=== PATIENT | male | born 1970 | race Caucasian/White ===

== ENCOUNTER 2016-10-01 23:20 | Emergency (ER) | payer SELFPAY ==
[2016-10-02] MEDS ORDERED: IBUPROFEN 600 MG TABLET PO ONE (00:40)
[2016-10-02] MEDS ORDERED: LIDOCAINE 5% (700 MG) TRANSDERMAL ADH..PATCH TP ONE (00:41)
[2016-10-02] MEDS ORDERED: ACETAMINOPHEN 325 MG TABLET PO ONE (00:41)
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
--- NOTE | 2016-10-02 01:00 | RADIOLOGY REPORT (SQ) ---
EXAM DESCRIPTION: SHOULDER RIGHT 2 OR MORE VIEWS COMPLETED DATE/TIME: 10/02/2016 12:13 am REASON FOR STUDY: right shoulder pain . Fall off of knee board. COMPARISON: None. NUMBER OF VIEWS: Three views. TECHNIQUE: Internal rotation, external rotation, and Y view images acquired of the right shoulder. LIMITATIONS: None. FINDINGS: MINERALIZATION: Normal. BONES: No acute fracture or dislocation. JOINTS: No dislocation. VISUALIZED LUNGS AND RIBS: No pneumothorax. No displaced rib fracture. SOFT TISSUES: No radiopaque foreign body. IMPRESSION: No radiographic evidence of acute injury. TECHNICAL DOCUMENTATION: JOB ID: [id number] 2010 [employer]- All Rights Reserved
[2016-10-02 01:12] VITALS: BP 121/81
== END 2016-10-02 01:11 | disposition home or self-care (01) ==
LOC: ER 23:20
DX: S49.91XA Unspecified injury of right shoulder and upper arm, initial encounter (principal); W19.XXXA Unspecified fall, initial encounter; Y93.19 Activity, other involving water and watercraft; F17.200 Nicotine dependence, unspecified, uncomplicated; I25.2 Old myocardial infarction
CPT/HCPCS: 99283

== ENCOUNTER 2016-12-18 12:09 | Emergency (ER) | payer SELFPAY ==
[2016-12-18] MEDS ORDERED: AMOXICILLIN TRIHYDRATE 500 MG CAPSULE PO ONE (12:29)
[2016-12-18] MEDS ORDERED: IBUPROFEN 800 MG TABLET PO ONE (12:31)
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
[2016-12-18 13:00] VITALS: BP 120/77
== END 2016-12-18 12:58 | disposition home or self-care (01) ==
LOC: ER 12:09
DX: H66.001 Acute suppurative otitis media without spontaneous rupture of ear drum, right ear (principal); H92.01 Otalgia, right ear; J02.9 Acute pharyngitis, unspecified; R09.81 Nasal congestion; R09.82 Postnasal drip; I25.10 Atherosclerotic heart disease of native coronary artery without angina pectoris; I25.2 Old myocardial infarction; I10 Essential (primary) hypertension; F17.210 Nicotine dependence, cigarettes, uncomplicated; Z71.6 Tobacco abuse counseling; Z88.6 Allergy status to analgesic agent
CPT/HCPCS: 99282

== ENCOUNTER 2017-12-21 16:59 | Emergency (ER) | payer SELFPAY ==
--- NOTE | 2017-12-21 18:20 | ER Document Report ---
HPI - HPI Pain Level: 5 Context: Patient is a 47-year-old male complaining of bilateral ear pain 1 week. Patient admits to nasal drainage and coughing. No fever Associated Symptoms: Allergy/hay fever, Earache, Headache Exacerbated by: Denies Relieved by: Denies Similar symptoms previously: No Recently seen / treated by doctor: Yes - ROS Systems Reviewed and Negative: Yes All other systems reviewed and negative Past Medical History - General Information source: Patient - Social History Smoking Status: Current Every Day Smoker Smoking Education Provided: No Frequency of alcohol use: None Drug Abuse: None Family History: Reviewed & Not Pertinent - Past Medical History Cardiac Medical History: Reports: Hx Coronary Artery Disease, Hx Heart Attack, Hx Hypercholesterolemia, Hx Hypertension Renal/ Medical History: Denies: Hx Peritoneal Dialysis Musculoskeletal Medical History: Reports Hx Arthritis, Reports Hx Musculoskeletal Deformity, Reports Hx Musculoskeletal Trauma Traumatic Medical History: Reports: Hx Fractures - Fractured legs knees ribs arms face Past Surgical History: Reports: Hx Cardiac Catheterization, Hx Coronary Stent, Hx Inguinal Hernia - Right, Hx Oral Surgery, Hx Orthopedic Surgery - Lt Shoulder - Immunizations Hx Diphtheria, Pertussis, Tetanus Vaccination: Yes Vertical Provider Document - CONSTITUTIONAL Agree With Documented VS: Yes Exam Limitations: No Limitations - INFECTION CONTROL TRAVEL OUTSIDE OF THE [place] IN LAST 30 DAYS: No - HEENT HEENT: Atraumatic, PERRLA, Tympanic Membrane Red - Bilateral tympanic membranes injected and retracted. Positive serous effusion right tympanic membrane - NECK Neck: Normal Inspection, Supple - RESPIRATORY Respiratory: Breath Sounds Normal, No Respiratory Distress - CARDIOVASCULAR Cardiovascular: Regular Rate, Regular Rhythm - MUSCULOSKELETAL/EXTREMETIES Musculoskeletal/Extremeties: MAEW - NEURO Level of Consciousness: Awake, Alert, Appropriate - DERM Integumentary: Warm, Dry Course - Vital Signs Vital signs: Temp Pulse Resp BP Pulse Ox 98.6 F 77 16 115/69 94 12/21/17 17:04 12/21/17 17:04 12/21/17 17:04 12/21/17 17:04 12/21/17 17:04 Discharge - Discharge Clinical Impression: Bilateral otitis media Qualifiers: Otitis media type: suppurative Chronicity: acute Recurrence: not specified as recurrent Spontaneous tympanic membrane rupture: without spontaneous rupture Qualified Code(s): H66.003 - Acute suppurative otitis media without spontaneous rupture of ear drum, bilateral Condition: Stable Disposition: HOME, SELF-CARE Instructions: Otitis Media ([facility]), Serous Otitis Media ([facility]), Antibiotic Therapy ([facility]), Ibuprofen (General) ([facility]) Additional Instructions: Take antibiotic as prescribed Recommend [id number] decongestant such as Sudafed to help dry the fluid behind eardrums Ibuprofen for discomfort Follow-up with your primary care if pain persists Prescriptions: Amoxicillin 875 mg PO BID #20 tablet Ibuprofen [Motrin 800 Mg Tablet] 800 mg PO Q6H #20 tablet
[2017-12-21 18:59] VITALS: BP 125/81
== END 2017-12-21 19:09 | disposition home or self-care (01) ==
LOC: ER 16:59
DX: H66.003 Acute suppurative otitis media without spontaneous rupture of ear drum, bilateral (principal); H92.03 Otalgia, bilateral; R05 Cough; R51 Headache; R09.89 Other specified symptoms and signs involving the circulatory and respiratory systems; I25.10 Atherosclerotic heart disease of native coronary artery without angina pectoris; I10 Essential (primary) hypertension; I25.2 Old myocardial infarction; F17.200 Nicotine dependence, unspecified, uncomplicated; Z95.5 Presence of coronary angioplasty implant and graft
CPT/HCPCS: 99282

== ENCOUNTER 2018-03-15 22:16 | Emergency (ER) | payer SELFPAY ==
--- NOTE | 2018-03-15 23:49 | ER Document Report ---
ED Medical Screen (RME) - General Chief Complaint: Leg Swelling Stated Complaint: FEET / LEGS SWELLING Time Seen by Provider: 03/15/18 23:37 Notes: Patient is a 47-year-old male who presents to the emergency department with complaint of leg and hand swelling. His swelling started this morning. 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 He states that he feels like they are on fire. Walking around makes his legs feel worse. He has not tried anything to help with his swelling. He does have a history of 2 heart attacks when he was 41 years old. He denies drinking alcohol. He does admit to smoking a pack of cigarettes a day and occasional marijuana. He denies any fevers. Denies shortness of breath. TRAVEL OUTSIDE OF THE [place] IN LAST 30 DAYS: No - Related Data Allergies/Adverse Reactions: aspirin Allergy (Verified 12/21/17 17:00) Past Medical History - Past Medical History Cardiac Medical History: Reports: Hx Coronary Artery Disease, Hx Heart Attack, Hx Hypercholesterolemia, Hx Hypertension Renal/ Medical History: Denies: Hx Peritoneal Dialysis Musculoskeltal Medical History: Reports Hx Arthritis, Reports Hx Musculoskeletal Deformity, Reports Hx Musculoskeletal Trauma Traumatic Medical History: Reports: Hx Fractures - Fractured legs knees ribs arms face Past Surgical History: Reports: Hx Cardiac Catheterization, Hx Coronary Stent, Hx Inguinal Hernia - Right, Hx Oral Surgery, Hx Orthopedic Surgery - Lt Shoulder - Immunizations Hx Diphtheria, Pertussis, Tetanus Vaccination: Yes Review of Systems - Review of Systems Notes: REVIEW OF SYSTEMS: CONSTITUTIONAL : Denies recent illness. Denies recent unintentional weight loss. Denies fever, chills, or sweats. EENT: Denies eye, ear, throat, or mouth pain, discharge, or symptoms. Denies nasal or sinus congestion. CARDIOVASCULAR: HPI. Denies chest pain. RESPIRATORY: Denies shortness of breath, cough, congestion, difficulty breathing , or wheezing. GASTROINTESTINAL: Denies nausea, vomiting, and diarrhea. Denies abdominal pain. Denies constipation. GENITOURINARY: Denies difficulty urinating, burning, blood in urine, urgency or frequency. MUSCULOSKELETAL: Denies neck and back pain. Denies joint pain. SKIN: Denies rash, itchiness, or lesions HEMATOLOGIC : Denies easy bruising or bleeding. LYMPHATIC: Denies swollen, painful, enlarged glands. NEUROLOGICAL: Denies no numbness or tingling denies weakness. Denies headache. Denies altered mental status. Denies alteration in speech. PSYCHIATRIC: Denies stress, anxiety, alteration in sleep patterns, or depression. All other systems reviewed and negative. Physical Exam - Vital signs Vitals: Temp Pulse Resp BP Pulse Ox 97.9 F 72 20 119/69 95 03/15/18 22:46 03/15/18 22:46 03/15/18 22:46 03/15/18 22:46 03/15/18 22:46 - Notes Notes: PHYSICAL EXAMINATION: GENERAL: Appears well, healthy, well-nourished, no acute distress. HEAD: Normocephalic, atraumatic. EYES: PERRL, conjunctiva normal, all extraocular movements intact, sclera nonicteric ENT: Moist mucous membranes. NECK: Supple, no noticeable swelling, redness, rash. Normal range of motion. LUNGS: Equal breath sounds bilaterally and clear to auscultation. No wheezes rales or rhonchi. CARDIOVASCULAR: S1-S2, regular rate, regular rhythm. Radial pulses 2+, normal. ABDOMEN: Normoactive bowel sounds. Soft, nontender, no guarding, no rebound tenderness, and no masses palpated. EXTREMITIES: 1+ nonpitting edema in lower extremities. Very mild edema in hands. Normal strength and range of motion. No cyanosis. NEUROLOGICAL: Moves all extremities upon command. Strength 5/5 in all extremities. PSYCH: Normal mood, normal affect. SKIN: Warm, dry. No rash, lesions, ulcerations noted. Normal skin turgor. Course - Re-evaluation Re-evalutation: 03/16/18 01:56 Laboratory studies have resulted. CBC is unremarkable. His CMP shows low protein and low albumin, but does not show proteinuria. His chest x-ray is negative. Based off his physical exam and labs, his edema is most likely caused by venous insufficiency. Patient was updated on his labs and diagnostic studies. He will be sent home with compression hose. He needs to establish a primary care doctor and consult with a production quality analyst for follow-up. He verbalizes understanding. - Vital Signs Vital signs: Temp Pulse Resp BP Pulse Ox 97.9 F 72 20 119/69 95 03/15/18 22:46 03/15/18 22:46 03/15/18 22:46 03/15/18 22:46 03/15/18 22:46 - Laboratory Result Diagrams: 03/16/18 00:50 03/16/18 00:50 Laboratory results interpreted by me: 03/16/18 03/16/18 03/16/18 00:50 00:50 00:50 RBC 4.31 L Seg Neutrophils % 33.7 L Lymphocytes % 53.9 H BUN 22 H NT-Pro-B Natriuret Pep 306 H Total Protein 5.9 L Albumin 3.4 L - EKG Interpretation by Me Additional EKG results interpreted by me: 03/16/18 00:43 Sinus rhythm: Rate 63; WV 152; QRS 96; QT 412; QTC 422; no ST elevations or depressions. Doctor's Discharge - Discharge Clinical Impression: Bilateral hand swelling, Localized swelling of both lower extremities Disposition: HOME, SELF-CARE Additional Instructions: You have been seen here in the emergency department for swelling in your extremities. Since you have been working a lot, this may be a cause of your swelling. This is called venous insufficiency. You have been given compression stockings. Please wear them to help with your swelling. Please take a break from work. Elevate your legs after working. Please establish a primary care doctor and follow-up with a production quality analyst (heart doctor) to evaluate your heart since you had a heart attack 6 years ago. If you develop shortness of breath, chest pain, difficulty breathing, or other symptoms that are worrisome to you, please return to the emergency department. Forms: Return to Work
[2018-03-16 01:03] LABS: ABSOLUTE BASOPHILS # (AUTO) 0.1 10^3/uL (0.0-0.2); ABSOLUTE EOSINOPHILS # (AUTO) 0.2 10^3/uL (0.0-0.6); ABSOLUTE MONOCYTES (AUTO) 0.6 10^3/uL (0.1-1.4); ABSOLUTE NEUT (AUTO) 2.5 10^3/uL (1.7-8.2); BASOPHILS % (AUTO) 0.8 % (0-2); EOSINOPHILS % (AUTO) 2.9 % (0-6); HEMATOCRIT 39.4 % (37.9-51.0); HEMOGLOBIN 13.8 g/dL (13.5-17.0); LYMPHOCYTES % (AUTO) 53.9 % (13-45); MEAN CORPUSCULAR VOLUME 92 fl (80-97); MONOCYTES % (AUTO) 8.7 % (3-13); PLATELET COUNT 246 10^3/uL (150-450); RED BLOOD COUNT 4.31 10^6/uL (4.35-5.55); RED CELL DISTRIBUTION WIDTH 13.4 % (11.5-14.0); SEGMENTED NEUTROPHILS % (AUTO) 33.7 % (42-78); TOTAL CELLS COUNTED % (AUTO) 100 %; WHITE BLOOD COUNT 7.4 10^3/uL (4.0-10.5)
[2018-03-16 01:12] LABS: APPEARANCE,URINE CLEAR; BILIRUBIN,URINE NEGATIVE (NEGATIVE); COLOR,URINE YELLOW; GLUCOSE, URINE NEGATIVE (NEGATIVE); KETONES,URINE NEGATIVE (NEGATIVE); LEUKOCYTE ESTERASE,URINE NEGATIVE (NEGATIVE); NITRITE,URINE NEGATIVE (NEGATIVE); PROTEIN,URINE NEGATIVE (NEGATIVE); URINE SPECIFIC GRAVITY 1.023; UROBILINOGEN,URINE NEGATIVE mg/dL (<2.0)
[2018-03-16 01:16] LABS: ALANINE AMINOTRANSFERASE 23 U/L (21-72); ALBUMIN 3.4 g/dL (3.5-5.0); ALKALINE PHOSPHATASE 51 U/L (38-126); ANION GAP 8 (5-19); ASPARTATE AMINO TRANSFERASE 18 U/L (17-59); BILIRUBIN,DIRECT 0.2 mg/dL (0.0-0.4); BILIRUBIN,TOTAL 0.2 mg/dL (0.2-1.3); BLOOD UREA NITROGEN 22 mg/dL (7-20); CALCIUM 8.7 mg/dL (8.4-10.2); CARBON DIOXIDE 26 mmol/L (22-30); CHLORIDE 106 mmol/L (98-107); GLUCOSE 91 mg/dL (75-110); POTASSIUM 4.1 mmol/L (3.6-5.0); SODIUM 140.2 mmol/L (137-145); TOTAL PROTEIN 5.9 g/dL (6.3-8.2)
--- NOTE | 2018-03-16 01:33 | RADIOLOGY REPORT (SQ) ---
EXAM DESCRIPTION: XR CHEST 2 VIEWS COMPLETED DATE/TME: 03/15/2018 23:50 CLINICAL HISTORY: 47 years, Male, lower extremity swelling COMPARISON: None. NUMBER OF VIEWS: 2 TECHNIQUE: Frontal and lateral views of the chest LIMITATIONS: None. FINDINGS: The heart size is normal. Lungs are clear. No pneumothorax IMPRESSION: Negative chest 2010 [facility] [address] [employer]- All Rights Reserved
[2018-03-16 02:22] VITALS: BP 119/77
--- NOTE | 2018-03-16 09:57 | EKG REPORT ---
SEVERITY:- ABNORMAL ECG - SINUS RHYTHM PROBABLE RIGHT VENTRICULAR HYPERTROPHY : Confirmed by: Viridiana Santiago 16-Mar-2018 09:56:56
== END 2018-03-16 02:29 | disposition home or self-care (01) ==
LOC: ER 22:16
DX: M79.89 Other specified soft tissue disorders (principal); I25.10 Atherosclerotic heart disease of native coronary artery without angina pectoris; I10 Essential (primary) hypertension
CPT/HCPCS: 36415; 71046; 80053; 81001; 83880; 85025; 93005; 93010; 99284

== ENCOUNTER 2018-06-07 16:09 | Emergency (ER) | payer SELFPAY ==
--- NOTE | 2018-06-07 16:35 | RADIOLOGY REPORT (SQ) ---
EXAM DESCRIPTION: ANKLE RIGHT COMPLETE COMPLETED DATE/TIME: 06/07/2018 4:25 pm REASON FOR STUDY: Injured R ankle yesterday. Twisted it. COMPARISON: None. NUMBER OF VIEWS: Three views. TECHNIQUE: AP, lateral, and oblique radiographic images acquired of the right ankle. LIMITATIONS: None. FINDINGS: MINERALIZATION: Normal. BONES: No acute fracture or dislocation. No worrisome bone lesions. JOINTS: No effusions. SOFT TISSUES: Diffuse swelling. OTHER: No other significant finding. IMPRESSION: Soft tissue injury. TECHNICAL DOCUMENTATION: JOB ID: [id number] [employer]- All Rights Reserved Reading location - IP/workstation name: [email or web address]
[2018-06-07] MEDS ORDERED: LIDOCAINE 5% (700 MG) TRANSDERMAL ADH..PATCH TP ONE (17:39)
--- NOTE | 2018-06-07 17:40 | ER Document Report ---
ED General - General Chief Complaint: Ankle Injury Stated Complaint: ANKLE INJURY Time Seen by Provider: 06/07/18 16:50 TRAVEL OUTSIDE OF THE [place] IN LAST 30 DAYS: No - HPI Patient complains to provider of: Right ankle injury Notes: Patient coming in for right ankle injury patient states his walking is you are stepped in hole rolling his ankle with inversion injury. Patient states continued to walk on his ankle but scared that he may have fractured something therefore came to the ER for further evaluation. Patient denies any fall or loss of consciousness denies any other injuries. - Related Data Allergies/Adverse Reactions: aspirin Allergy (Verified 12/21/17 17:00) Past Medical History - Social History Smoking Status: Unknown if Ever Smoked Family History: Reviewed & Not Pertinent - Past Medical History Cardiac Medical History: Reports: Hx Coronary Artery Disease, Hx Heart Attack, Hx Hypercholesterolemia, Hx Hypertension Renal/ Medical History: Denies: Hx Peritoneal Dialysis Musculoskeletal Medical History: Reports Hx Arthritis, Reports Hx Musculoskeletal Deformity, Reports Hx Musculoskeletal Trauma Traumatic Medical History: Reports: Hx Fractures - Fractured legs knees ribs arms face Past Surgical History: Reports: Hx Cardiac Catheterization, Hx Coronary Stent, Hx Inguinal Hernia - Right, Hx Oral Surgery, Hx Orthopedic Surgery - Lt Shoulder - Immunizations Hx Diphtheria, Pertussis, Tetanus Vaccination: Yes Review of Systems - Review of Systems Constitutional: No symptoms reported EENT: No symptoms reported Cardiovascular: No symptoms reported Respiratory: No symptoms reported Gastrointestinal: No symptoms reported Genitourinary: No symptoms reported Male Genitourinary: No symptoms reported Musculoskeletal: Other - Ankle pain Skin: No symptoms reported Hematologic/Lymphatic: No symptoms reported Neurological/Psychological: No symptoms reported -: Yes All other systems reviewed and negative Physical Exam - Vital signs Vitals: Temp Pulse Resp BP Pulse Ox 97.8 F 72 20 124/81 97 06/07/18 16:15 06/07/18 16:15 06/07/18 16:15 06/07/18 16:15 06/07/18 16:15 Interpretation: Normal - General General appearance: Appears well, Alert - HEENT Head: Normocephalic, Atraumatic Eyes: Normal Pupils: PERRL - Respiratory Respiratory status: No respiratory distress Chest status: Nontender Breath sounds: Normal Chest palpation: Normal - Cardiovascular Rhythm: Regular Heart sounds: Normal auscultation Murmur: No - Abdominal Inspection: Normal Distension: No distension Bowel sounds: Normal Tenderness: Nontender Organomegaly: No organomegaly - Back Back: Normal, Nontender - Extremities General upper extremity: Normal inspection, Nontender, Tender, Normal color, Normal ROM, Normal temperature General lower extremity: Normal inspection, Tender - Minimal tenderness along palpation of the anterior talofibular ligament lateral portion of the right ankle there is no bruising swelling bilateral legs equal proximally trace edema left ankle unaffected, Normal color, Normal ROM, Normal temperature, Normal daniela ght bearing. No: Solitario's sign - Neurological Neuro grossly intact: Yes Cognition: Normal Orientation: AAOx4 [place] Coma Scale Eye Opening: Spontaneous [place] Coma Scale Verbal: Oriented [place] Coma Scale Motor: Obeys Commands [place] Coma Scale Total: 15 Speech: Normal Motor strength normal: LUE, RUE, LLE, RLE Sensory: Normal - Psychological Associated symptoms: Normal affect, Normal mood - Skin Skin Temperature: Warm Skin Moisture: Dry Skin Color: Normal Course - Re-evaluation Re-evalutation: 06/07/18 18:41 X-rays negative for fracture will place the patient in an Rishabh wrap recommend ice elevation Tylenol Motrin for pain control crutches will be given in case patient needs in for amatory assistance. - Vital Signs Vital signs: Temp Pulse Resp BP Pulse Ox 98.1 F 74 16 118/74 99 06/07/18 17:58 06/07/18 17:58 06/07/18 17:58 06/07/18 17:58 06/07/18 17:58 Discharge - Discharge Clinical Impression: Ankle sprain Qualifiers: Encounter type: initial encounter Involved ligament of ankle: unspecified ligament Laterality: right Qualified Code(s): S93.401A - Sprain of unspecified ligament of right ankle, initial encounter Condition: Good Disposition: HOME, SELF-CARE Instructions: Rishabh Wrap ([facility]), Ice & Elevation ([facility]), Sprained Ankle ([facility]) Additional Instructions: Your evaluation today does not show any signs of fracture would highly recommend that you follow-up with your primary care physician please elevate and ice her leg tonight we will treat you with a Rishabh wrap may use crutches as needed return to ER for worsening symptoms take Tylenol Motrin for pain control
[2018-06-07 17:59] VITALS: BP 118/74
== END 2018-06-07 17:58 | disposition home or self-care (01) ==
LOC: ER 16:09
DX: S93.401A Sprain of unspecified ligament of right ankle, initial encounter (principal); X50.1XXA Overexertion from prolonged static or awkward postures, initial encounter; I25.10 Atherosclerotic heart disease of native coronary artery without angina pectoris; I10 Essential (primary) hypertension
CPT/HCPCS: 99283

== ENCOUNTER 2018-10-12 08:47 | Emergency (ER) | payer SELFPAY ==
[2018-10-12] MEDS ORDERED: ACETAMINOPHEN 325 MG TABLET PO ONE (09:36)
--- NOTE | 2018-10-12 09:39 | ER Document Report ---
ED Medical Screen (RME) - General Chief Complaint: Rectal Bleeding Stated Complaint: INSECT BITE Time Seen by Provider: 10/12/18 09:35 TRAVEL OUTSIDE OF THE [place] IN LAST 30 DAYS: No - HPI Notes: 10/12/18 09:37 Patient is a 48-year-old male with a history of coronary artery disease, not currently on any medicines otherwise, who presents complaining of generalized body aching, frequent tick bites that have been embedded and noted to be deer ticks over the past couple months. Patient states that he also had one red bloody bowel movement this morning without any discomfort or pain. He has never had a colonoscopy or endoscopy. Patient states he does drink alcohol the weekends. Patient states for the past couple weeks he is also had vomiting of mucus in the mornings, but otherwise is eating and drinking throughout the days without difficulties. Denies FOFANA, fever, neck pain, URI, CP, SOB, Abd pain, dysuria. I have treated and performed a rapid initial assessment of this patient. A comprehensive ED assessment and evaluation of the patient, analysis of test results and completion of medical decision making process will be conducted by additional ED providers. PHYSICAL EXAMINATION: GENERAL: Well-appearing, well-nourished and in no acute distress. A&Ox4. Answers questions appropriately. LUNGS: Breath sounds clear to auscultation bilaterally and equal. No wheezes rales or rhonchi. HEART: Regular rate and rhythm without murmurs, rubs, gallops. ABDOMEN: Soft, nondistended abdomen. No guarding, no rebound. Normal bowel sounds present. No CVA tenderness bilaterally. Grossly nontender (cannot elicit thorough abd exam w/o bed, however). Extremities: No cyanosis, clubbing, or edema b/l. NEUROLOGICAL: Normal speech, normal gait. PSYCH: Normal mood, normal affect. - Related Data Allergies/Adverse Reactions: aspirin Allergy (Verified 10/12/18 09:34) Past Medical History - Social History Frequency of alcohol use: Social - Past Medical History Cardiac Medical History: Reports: Hx Coronary Artery Disease, Hx Heart Attack, Hx Hypercholesterolemia, Hx Hypertension Renal/ Medical History: Denies: Hx Peritoneal Dialysis Musculoskeltal Medical History: Reports Hx Arthritis, Reports Hx Musculoskeletal Deformity, Reports Hx Musculoskeletal Trauma Traumatic Medical History: Reports: Hx Fractures - Fractured legs knees ribs arms face Past Surgical History: Reports: Hx Cardiac Catheterization, Hx Coronary Stent, Hx Inguinal Hernia - Right, Hx Oral Surgery, Hx Orthopedic Surgery - Lt Shoulder - Immunizations Hx Diphtheria, Pertussis, Tetanus Vaccination: Yes Physical Exam - Vital signs Vitals: Temp Pulse Resp BP Pulse Ox 97.9 F 78 18 113/79 96 10/12/18 09:02 10/12/18 09:02 10/12/18 09:02 10/12/18 09:02 10/12/18 09:02 Course - Vital Signs Vital signs: Temp Pulse Resp BP Pulse Ox 97.9 F 78 18 113/79 96 10/12/18 09:02 10/12/18 09:02 10/12/18 09:02 10/12/18 09:02 10/12/18 09:02
[2018-10-12 10:01] LABS: ABSOLUTE BASOPHILS # (AUTO) 0.1 10^3/uL (0.0-0.2); ABSOLUTE EOSINOPHILS # (AUTO) 0.1 10^3/uL (0.0-0.6); ABSOLUTE LYMPHOCYTES (AUTO) 2.3 10^3/uL (0.5-4.7); ABSOLUTE MONOCYTES (AUTO) 0.5 10^3/uL (0.1-1.4); ABSOLUTE NEUT (AUTO) 4.7 10^3/uL (1.7-8.2); BASOPHILS % (AUTO) 1.2 % (0-2); EOSINOPHILS % (AUTO) 1.6 % (0-6); HEMATOCRIT 46.2 % (37.9-51.0); HEMOGLOBIN 16.2 g/dL (13.5-17.0); LYMPHOCYTES % (AUTO) 29.5 % (13-45); MEAN CORPUSCULAR HGB CONC 34.9 g/dL (32.0-36.0); MEAN CORPUSCULAR VOLUME 89 fl (80-97); MONOCYTES % (AUTO) 6.3 % (3-13); PLATELET COUNT 283 10^3/uL (150-450); RED BLOOD COUNT 5.21 10^6/uL (4.35-5.55); RED CELL DISTRIBUTION WIDTH 13.2 % (11.5-14.0); SEGMENTED NEUTROPHILS % (AUTO) 61.4 % (42-78); TOTAL CELLS COUNTED % (AUTO) 100 %; WHITE BLOOD COUNT 7.7 10^3/uL (4.0-10.5)
[2018-10-12 10:03] LABS: APPEARANCE,URINE CLEAR; BILIRUBIN,URINE NEGATIVE (NEGATIVE); COLOR,URINE YELLOW; GLUCOSE, URINE NEGATIVE (NEGATIVE); KETONES,URINE NEGATIVE (NEGATIVE); LEUKOCYTE ESTERASE,URINE NEGATIVE (NEGATIVE); NITRITE,URINE NEGATIVE (NEGATIVE); PROTEIN,URINE NEGATIVE (NEGATIVE); URINE SPECIFIC GRAVITY 1.025; UROBILINOGEN,URINE NEGATIVE mg/dL (<2.0)
[2018-10-12 10:34] LABS: BLOOD UREA NITROGEN 13 mg/dL (7-20); CALCIUM 9.2 mg/dL (8.4-10.2); GLUCOSE 96 mg/dL (75-110)
[2018-10-12 10:35] LABS: ALANINE AMINOTRANSFERASE 18 U/L (21-72); ALBUMIN 4.2 g/dL (3.5-5.0); ALKALINE PHOSPHATASE 70 U/L (38-126); ANION GAP 8 (5-19); ASPARTATE AMINO TRANSFERASE 20 U/L (17-59); BILIRUBIN,DIRECT 0.3 mg/dL (0.0-0.4); BILIRUBIN,TOTAL 0.4 mg/dL (0.2-1.3); CARBON DIOXIDE 27 mmol/L (22-30); CHLORIDE 107 mmol/L (98-107); CREATINE KINASE 68 U/L (55-170); LIPASE 287.1 U/L (23-300); POTASSIUM 4.6 mmol/L (3.6-5.0); SODIUM 142.1 mmol/L (137-145); TOTAL PROTEIN 7.4 g/dL (6.3-8.2)
--- NOTE | 2018-10-12 10:51 | ER Document Report ---
ED General - General Chief Complaint: Rectal Bleeding Stated Complaint: INSECT BITE Time Seen by Provider: 10/12/18 09:35 Primary Care Provider: ISAURO VALENZUELA MD [ACTIVE STAFF] - Follow up in 3-5 days Notes: This is a pleasant 48-year-old male to the emergency department chief complaint of rectal bleeding. Patient states that he went to the bathroom this morning. Had no pain. Started noticing a large amount of blood in the stool. He has had no fever. He was concerned because he has had several tick bites recently. He denies any fever, myalgias, stiff numbness of his neck or headache. States that he has had at least 4 5 tick bites. Denies any other major problems. No history of hepatitis. No history of GI bleed. No history of anemias or thrombocytopenias. TRAVEL OUTSIDE OF THE [place] IN LAST 30 DAYS: No - HPI Onset: Just prior to arrival Onset/Duration: Sudden Quality of pain: No pain Severity: Mild Pain Level: Denies - Related Data Allergies/Adverse Reactions: aspirin Allergy (Verified 10/12/18 09:34) Past Medical History - General Information source: Patient - Social History Smoking Status: Smoker,Current Status Unk Frequency of alcohol use: Social Drug Abuse: None Lives with: Family Family History: Reviewed & Not Pertinent Patient has suicidal ideation: No Patient has homicidal ideation: No - Past Medical History Cardiac Medical History: Reports: Hx Coronary Artery Disease, Hx Heart Attack, Hx Hypercholesterolemia, Hx Hypertension Renal/ Medical History: Denies: Hx Peritoneal Dialysis Musculoskeletal Medical History: Reports Hx Arthritis, Reports Hx Musculoskeletal Deformity, Reports Hx Musculoskeletal Trauma Traumatic Medical History: Reports: Hx Fractures - Fractured legs knees ribs a conrado face Past Surgical History: Reports: Hx Cardiac Catheterization, Hx Coronary Stent, Hx Inguinal Hernia - Right, Hx Oral Surgery, Hx Orthopedic Surgery - Lt Shoulder - Immunizations Hx Diphtheria, Pertussis, Tetanus Vaccination: Yes Review of Systems - Review of Systems Notes: Constitutional: denies: Chills, Diaphoresis, Fever, Malaise, Weakness EENT: denies: Eye discharge, Blurred vision, Tearing, Double vision, Nose congestion, Nose discharge, Throat swelling, Mouth pain Cardiovascular: denies: Palpitations, Heart racing, Orthopnea, Dyspnea, Chest pain Respiratory: denies: Cough, Hurts to breathe, Wheezing, Shortness of breath Gastrointestinal: denies: Abdominal pain, Diarrhea, Nausea, Vomiting, Black stools,+ bright red blood in stool Genitourinary: denies: Burning, Dysuria, Discharge, Frequency, Flank pain, Hematuria Musculoskeletal: denies: Joint pain, Joint swelling, Muscle pain, Muscle stiffness, back pain Hematologic/Lymphatic: denies: Anemia, Easy bleeding, Easy bruising, Blood clots Neurological/Psychological: denies: Confusion, Dementia, Depression, Loss of consciousness Skin: No lesions, no masses, no skin breakdown, no abscesses. Complaining of tick bites Physical Exam - Vital signs Vitals: Temp Pulse Resp BP Pulse Ox 97.9 F 78 18 113/79 96 10/12/18 09:02 10/12/18 09:02 10/12/18 09:02 10/12/18 09:02 10/12/18 09:02 Interpretation: Normal - General General appearance: Appears well, Alert - HEENT Head: Normocephalic, Atraumatic Eyes: Normal Pupils: PERRL - Respiratory Respiratory status: No respiratory distress Chest status: Nontender Breath sounds: Normal Chest palpation: Normal - Cardiovascular Rhythm: Regular Heart sounds: Normal auscultation Murmur: No - Abdominal Inspection: Normal Distension: No distension Bowel sounds: Normal Tenderness: Nontender Organomegaly: No organomegaly - Rectal Tenderness: No Stool: Heme positive Hemorrhoids: None Prostate: Normal - Back Back: Normal, Nontender - Extremities General upper extremity: Normal inspection, Nontender, Normal color, Normal ROM, Normal temperature General lower extremity: Normal inspection, Nontender, Normal color, Normal ROM, Normal temperature, Normal weight bearing. No: Solitario's sign - Neurological Neuro grossly intact: Yes Cognition: Normal Orientation: AAOx4 [place] Coma Scale Eye Opening: Spontaneous [place] Coma Scale Verbal: Oriented [place] Coma Scale Motor: Obeys Commands [place] Coma Scale Total: 15 Speech: Normal Motor strength normal: LUE, RUE, LLE, RLE Sensory: Normal - Psychological Associated symptoms: Normal affect, Normal mood - Skin Skin Temperature: Warm Skin Moisture: Dry Skin Color: Normal Course - Re-evaluation Re-evalutation: 10/12/18 11:11 Laboratory 10/12/18 10/12/18 10/12/18 09:45 09:45 09:45 WBC 7.7 RBC 5.21 Hgb 16.2 Hct 46.2 MCV 89 MCH 31.0 MCHC 34.9 RDW 13.2 Plt Count 283 Seg Neutrophils % 61.4 Lymphocytes % 29.5 Monocytes % 6.3 Eosinophils % 1.6 Basophils % 1.2 Absolute Neutrophils 4.7 Absolute Lymphocytes 2.3 Absolute Monocytes 0.5 Absolute Eosinophils 0.1 Absolute Basophils 0.1 Sodium 142.1 Potassium 4.6 Chloride 107 Carbon Dioxide 27 Anion Gap 8 BUN 13 Creatinine 0.88 Est GFR ( Amer) > 60 Est GFR (Non-Af Amer) > 60 Glucose 96 Calcium 9.2 Total Bilirubin 0.4 Direct Bilirubin 0.3 Neonat Total Bilirubin Not Reportable Neonat Direct Bilirubin Not Reportable Neonat Indirect Bili Not Reportable AST 20 ALT 18 L Alkaline Phosphatase 70 Creatine Kinase 68 Total Protein 7.4 Albumin 4.2 Lipase 287.1 Urine Color YELLOW Urine Appearance CLEAR Urine pH 6.0 Ur Specific [place] 1.025 Urine Protein NEGATIVE Urine Glucose (UA) NEGATIVE Urine Ketones NEGATIVE Urine Blood NEGATIVE Urine Nitrite NEGATIVE Urine Bilirubin NEGATIVE Urine Urobilinogen NEGATIVE Ur Leukocyte Esterase NEGATIVE Urine WBC (Auto) 0 Urine RBC (Auto) 1 Urine Mucus (Auto) RARE Urine Ascorbic Acid NEGATIVE POC Stool Occult Blood 10/12/18 10:53 WBC RBC Hgb Hct MCV MCH MCHC RDW Plt Count Seg Neutrophils % Lymphocytes % Monocytes % Eosinophils % Basophils % Absolute Neutrophils Absolute Lymphocytes Absolute Monocytes Absolute Eosinophils Absolute Basophils Sodium Potassium Chloride Carbon Dioxide Anion Gap BUN Creatinine Est GFR ( Amer) Est GFR (Non-Af Amer) Glucose Calcium Total Bilirubin Direct Bilirubin Neonat Total Bilirubin Neonat Direct Bilirubin Neonat Indirect Bili AST ALT Alkaline Phosphatase Creatine Kinase Total Protein Albumin Lipase Urine Color Urine Appearance Urine pH Ur Specific [place] Urine Protein Urine Glucose (UA) Urine Ketones Urine Blood Urine Nitrite Urine Bilirubin Urine Urobilinogen Ur Leukocyte Esterase Urine WBC (Auto) Urine RBC (Auto) Urine Mucus (Auto) Urine Ascorbic Acid POC Stool Occult Blood POSITIVE 10/12/18 11:11 Patient does have a occult positive stool. Does describe some bright red blood in the toilet but no abdominal pain. He is not tachycardic. He is not hypotensive. He is not thrombocytopenic. He did report these tick bites which may be coincidental and not sure. Some take infections can cause some thrombocytopenia however this is not the case with this patient. I did not feel or palpate any masses. Did not see any external hemorrhoids. No active bleeding at this time. He denies any abdominal pain. His physical exam is unremarkable. At this time I do believe patient could be treated conservatively with outpatient treatment. I have advised stool softeners, doxycycline in the event that this is a tic issue and staying out of the sun, getting plenty of fluids and in the event that his bleeding or symptoms are getting worse over the next 24 to 48 hours he absolutely has to return for repeat labs and repeat exact evaluation. I will also give him follow-up information for rental car deliverer as well as general surgery. We will try to make contact with gastroenterology at this time to prove this plan. 10/12/18 11:[address] Valenzuela and he is comfortable with this plan. Will DC at this time. - Vital Signs Vital signs: Temp Pulse Resp BP Pulse Ox 97.4 F 62 18 126/89 H 100 10/12/18 11:39 10/12/18 11:39 10/12/18 11:39 10/12/18 11:39 10/12/18 11:39 - Laboratory Result Diagrams: 10/12/18 09:45 10/12/18 09:45 Laboratory results interpreted by me: 10/12/18 09:45 ALT 18 L Discharge - Discharge Clinical Impression: Rectal bleeding Tick bites Qualifiers: Encounter type: initial encounter Qualified Code(s): W57.XXXA - Bitten or stung by nonvenomous insect and other nonvenomous arthropods, initial encounter Condition: Good Disposition: HOME, SELF-CARE Instructions: Rectal Bleeding, Unclear Cause ([facility]), Tick Bites ([facility]) Additional Instructions: Please take the antibiotics as instructed. In the event you develop any worsening symptoms please return to immediate emergency department immediately. Especially return if your bleeding is getting worse over the next 24 to 48 hours. Recommend stool softeners. Drinking plenty of fluid. Staying out of the sun while on the doxycycline. Please make an appointment with the rental car deliverer as instructed. Prescriptions: Doxycycline Hyclate 100 mg PO BID 10 Days #20 capsule Polyethylene Glycol 3350 [Miralax] 1 dose PO BID #1 bottle Referrals: ISAURO VALENZUELA MD [ACTIVE STAFF] - Follow up in 3-5 days
[2018-10-12 11:41] VITALS: BP 126/89
[2018-10-14 15:14] LABS: LYME DISEASE IGM AB <0.80 index (0.00-0.79)
== END 2018-10-12 11:40 | disposition home or self-care (01) ==
LOC: ER 08:47
DX: K62.5 Hemorrhage of anus and rectum (principal); W57.XXXA Bitten or stung by nonvenomous insect and other nonvenomous arthropods, initial encounter; Z88.6 Allergy status to analgesic agent
CPT/HCPCS: 36415; 80053; 81001; 82550; 83690; 85025; 86617; 86618; 99282